=== PATIENT | female | born 1990 ===

== ENCOUNTER → 2024-06-12 | Outpatient (CLI) | payer BC | LOC: LAB SHORT 17:10 → LAB 17:10 | DX: Z13.21 Encounter for screening for nutritional disorder (principal); Z13.228 Encounter for screening for other metabolic disorders; Z13.29 Encounter for screening for other suspected endocrine disorder; G62.9 Polyneuropathy, unspecified; L65.9 Nonscarring hair loss, unspecified; R53.1 Weakness; R53.83 Other fatigue | CPT/HCPCS: 85651 ==